=== PATIENT | female | born 1960 | race Hispanic/Latino ===

== ENCOUNTER → 2025-04-09 | Day surgery (SDC) | payer MEDICARE ==
[2025-04-08 12:03] LABS: BASOPHILS % 0.0 % (0.0-1.0); EOSINOPHILS % 2.3 % (0.0-6.0); LYMPHOCYTES % 26.3 % (18.0-39.1); MONOCYTES % 11.6 % (4.4-11.3); NEUTROPHILS % 59.5 % (38.7-80.0); RED CELL DISTRIBUTION WIDTH 13.2 % (11.7-14.4)
[2025-04-08 12:22] LABS: INR 1.0
[2025-04-08 12:27] LABS: EST GLOMERULAR FILTRATION RATE 66.0 ML/MIN (>=60)
[~2025-04-09] MED LIST: ASPIRIN81 MG PO; BUPIVACAINE LIPOSOME/PF 266 MG/20 ML IJ ONE; CELEBREX200 MG PO; DEXAMETHASONE SOD PHOS INJ 4 MG/ML SDV ONE; EPHEDRINE SULFATE INJ 50 MG/ML VIAL ONE; FENTANYL CITRATE/PF 100MCG/2 ML INJ ONE; GLUCOTROL XL10 MG PO; GLYCOPYRROLATE INJ 0.2 MG/ML VIAL ONE; HUMALOG SC; HYDROCODON-ACE1 EA12 PO; KETOROLAC TROMETHAMINE 30 MG/ML VIAL ONE; LIDOCAINE HCL 2% LOCAL INJ 5 ML SDV VIAL INJ ONE; LIPITOR10 MG PO; LISINOPRIL-HCT1 EAC2 PO; MIDAZOLAM HCL 2 MG/2 ML VIAL ONE; NEOSTIGMINE 1 MG/ML 10ML VIAL ONE; ONDANSETRON HCL INJ 2MG/ML 2ML 2 MG/ML VIAL ONE; PANTOPRAZOLE SO40 MG PO; PAROXETINE HCL20 MG PO; PHENYLEPHRINE HCL 1% 10 MG/ML VIAL ONE; PROPOFOL IV EMULSION 10 MG/ML 20 ML VIAL ONE; ROCURONIUM BROMIDE 1 ML IV ONE; SODIUM CHLORIDE 0.9% 100 ML ONE; VIT D PO; ZETIA10 MG PO
[2025-04-09] MEDS: CEFAZOLIN SODIUM 2 GM ONE (10:17)
[2025-04-09] MEDS: LACTATED RINGER'S 1,000 ML ONE (10:18)
[2025-04-09] MEDS: KETOROLAC TROMETHAMINE 30 MG/ML VIAL ONE (12:23)
[2025-04-09 13:35] VITALS: BP 116/60; PULSE 76; RESP 18; O2SAT 98
== END | disposition home or self-care (01) ==
LOC: OR 09:06
PROVIDERS: ATTEND Orthopaedic Surgery
DX: S42.221A 2-part displaced fracture of surgical neck of right humerus, initial encounter for closed fracture (principal); S42.251A Displaced fracture of greater tuberosity of right humerus, initial encounter for closed fracture; S46.011A Strain of muscle(s) and tendon(s) of the rotator cuff of right shoulder, initial encounter; M80.821A Other osteoporosis with current pathological fracture, right humerus, initial encounter for fracture; M19.011 Primary osteoarthritis, right shoulder; M85.811 Other specified disorders of bone density and structure, right shoulder; W01.198A Fall on same level from slipping, tripping and stumbling with subsequent striking against other object, initial encounter; Y92.812 Truck as the place of occurrence of the external cause; Z01.810 Encounter for preprocedural cardiovascular examination; Z01.812 Encounter for preprocedural laboratory examination
CPT/HCPCS: 23630; 23680; 36415 ×2; 71046; 76000; 80048; 82948; 85025; 85610; 85730; 86850; 86900; 86920; 93005; C1713 ×6; C1769; J0666; J1100; J1885; J2003; J2250; J2371; J2405; J2704; J2710; J3010; J7050; J7121